=== PATIENT | female | born 1950 | race Caucasian/White ===

== ENCOUNTER 2016-08-10 15:00 | Emergency (ER) | payer MEDICARE, OTHER ==
--- NOTE | 2016-08-10 15:49 | ER PHYSICIAN DOCUMENTATION ---
Physician Documentation [facility] Name:Laurence Mckeon Age:66 yrs Sex:Female :1950 Arrival Date:08/10/2016 Time:15:00 Bed1 Private MD:Luis Hoyt EDbenjamínCipriano Disposition: 08/10/16 15:35 Discharged to Home/Self Care. Impression: Dizziness - Vertigo, Dehydration. - Condition is Good. - Discharge Instructions: DEHYDRATION (4y-Adult), DIZZINESS, Unk Cause, VERTIGO, Unspecified. - Prescriptions for Antivert 25 mg Oral Tablet - take 1 tablet by ORAL route every 8 hours As needed; 20 tablet. - Medical Reconciliation form form. - Follow up: Luis Hoyt MD; When: 4- 6 days; Reason: Recheck today's complaints, Continuance of care. - Problem is new. - Symptoms have improved. - Notes: Drink plenty of fluids....rest...limit head movement... Take Antivert as prescribed... HPI: 08/10 15:05 This 66 yrs old Female presents to ER via Private Vehicle with complaints of cd Dizziness. 15:05 The patient presents with sense of spinning, vertigo. Onset: The symptom(s)/episode cd began/occurred acutely, 3 day(s) ago, after turning her head to the right. She sensed vertigo and spinning. She denies severe headache, fever, chills, neck stiffness, ataxia or dysmetria. She has not had facial drooping, weakness in the arms or legs or speech changes. She has not had any visual changes.. Context: occurred at home, occurred while the patient was sitting, today recurred. No nausea or vomiting. Associated signs and symptoms: Pertinent negatives: abdominal pain, blurred vision, chest pain, confusion, diaphoresis, focal weakness, headache, near-syncope, palpitations, seizure, shortness of breath, vomiting. Patient's baseline: Motor: no deficits, Ambulation: walks without assistance, Speech: normal. Historical: - Allergies: Novocain; Prozac; - Home Meds: 1. Potassium Chloride Oral 2. Magnesium Oxide Oral 3. multiple supplements and herbals - PMHx: edema; hypoxemia; LVH; diastolic heart failure; DEPRESSION; HIGH CHOLESTEROL; THYROID PROBLEM; - PSHx: Appendectomy; eye surgeries; - Tetanus: unknown. - Ebola Screening: : Patient negative for fever greater than or equal to 101.5 degrees Fahrenheit, and additional compatible Ebola Virus Disease symptoms. Patient denies exposure to infectious person. Patient denies travel to an Ebola-affected area in the 21 days before illness onset. No symptoms or risks identified at this time. . - Immunization history: Flu Vaccine >1 year. - Social history: Smoking status: Patient states was never smoker of tobacco. ROS: 15:20 Eyes: Negative for injury, pain, redness, discharge, blurry vision and loss of vision. cd Neck: Negative for injury, pain, stiffness and swelling. Cardiovascular: Negative for chest pain, palpitations, edema and pleuritic pain. Respiratory: Negative for shortness of breath, dyspnea on exertion, cough, sputum production, wheezing, hemoptysis and pleuritic chest pain. Abdomen/GI: Negative for abdominal pain, nausea, vomiting, diarrhea, constipation, distension, melena, hematochezia and hematemesis. Back: Negative for injury, pain or muscle spasms. MS/Extremity: Negative for injury, deformity, edema, calf tenderness, pain or coldness. 15:20 Skin: Negative for injury, rash, itching and discoloration. cd 15:20 Constitutional: Positive for poor PO intake, Negative for chills, fever. 15:20 ENT: Negative for rhinorrhea, sinus congestion, sinus pain, sore throat, hoarseness. 15:20 Neuro: Positive for dizziness, Negative for altered mental status, gait disturbance, headache, loss of consciousness, numbness, seizure activity, speech changes, syncope, near syncope, tingling, visual changes, weakness. 15:20 All other systems are negative. Exam: 15:20 Head/Face: Normocephalic, atraumatic. cd ENT: Nares patent. No nasal discharge, no septal abnormalities noted. Tympanic membranes are normal and external auditory canals are clear. Oropharynx with no redness, swelling, or masses, exudates, or evidence of obstruction, uvula midline. Mucous membranes moist. Neck: Trachea midline, no thyromegaly or masses palpated, and no cervical lymphadenopathy. Supple, full range of motion without nuchal rigidity, or vertebral point tenderness. No Meningismus. Chest/axilla: Normal chest wall appearance and motion. Nontender with no deformity. No lesions are appreciated. Cardiovascular: Regular rate and rhythm with a normal S1 and S2. No gallops, murmurs, or rubs. Normal PMI, no JVD. No pulse deficits. Respiratory: Lungs have equal breath sounds bilaterally, clear to auscultation and percussion. No rales, rhonchi or wheezes noted. No increased work of breathing, no retractions or nasal flaring. Abdomen/GI: Soft, non-tender, with normal bowel sounds. No distension or tympany. No guarding or rebound. No evidence of tenderness throughout. Back: No spinal tenderness. No costovertebral tenderness. Full range of motion. 15:20 Skin: Warm, dry with normal turgor. Normal color with no rashes, no lesions, and no evidence of cellulitis. 15:20 Constitutional: The patient appears alert, awake, non-diaphoretic, non-toxic, well developed, well nourished, anxious. 15:20 Eyes: Pupils: equal, round, and reactive to light and accomodation, Extraocular movements: intact throughout, Nystagmus: nystagmus with fast component noted, bilaterally. 15:20 Neuro: Orientation: is normal, Cerebellar function: is grossly normal, normal finger to nose testing, heel to hawkins testing is normal, able to perform alternating rapid hand movements, Motor: is normal, Sensation: is normal, Gait: is steady, at a normal pace, without difficulty. Vital Signs: 15:20 BP 137 / 84; Pulse 66; Resp 14; Temp 98(TE); Pulse Ox 91% on R/A; Pain 0/10; tg Ankita Coma Score: 15:20 Eye Response: spontaneous(4). Verbal Response: oriented(5). Motor Response: obeys cd commands(6). Total: 15. MDM: 15:10 Patient medically screened. cd 15:20 Differential diagnosis: cardiac arrhythmia, CVA, hypovolemia, idiopathic dizziness, cd TIA, vertigo. Data reviewed: vital signs, nurses notes, old medical records, and as a result, I will discharge patient. Data interpreted: Pulse oximetry: on room air is 91 %. Interpretation: normal. 15:30 Counseling: I had a detailed discussion with the patient and/or guardian regarding: the cd historical points, exam findings, and any diagnostic results supporting the discharge/admit diagnosis, the need for outpatient follow up, for a recheck, with the patient's primary care provider, to return to the emergency department if symptoms worsen or persist or if there are any questions or concerns that arise at home. Dispensed Medications: No medications were administered Signatures: Willard Pocne RN RN tg Cipriano Vazquez MD MD cd
--- NOTE | 2016-08-10 15:49 | ER NURSING DOCUMENTATION ---
Nurse's Notes [facility] Name:Laurence Mckeon Age:66 yrs Sex:Female :1950 Arrival Date:08/10/2016 Time:15:00 Bed1 Private MD:Luis Hoyt Diagnosis:Dizziness - Vertigo;Dehydration Presentation: 08/10 15:03 Acuity: CORNELL 3 tg 15:12 Presenting complaint: Patient states: Dizzy spell while sitting at her computer 30 tg minutes ago, has not resolved. No chest pain or shortness of breath. Similar dizzy spells the past few days when turning her head or moving in a car. Some nausea. No hx of vertigo. Transition of care: patient was not received from another setting of care. 15:12 Method Of Arrival: Private Vehicle tg Triage Assessment: 15:19 General: Appears in no apparent distress, Behavior is cooperative. Pain: Denies pain. tg Neuro: Level of Consciousness is awake, alert, Reports dizziness. Respiratory: Airway is patent Respiratory effort is even, unlabored. Derm: Skin is pink, warm & dry. 15:20 GI: Reports nausea. tg Historical: - Allergies: Novocain; Prozac; - Home Meds: 1. Potassium Chloride Oral 2. Magnesium Oxide Oral 3. multiple supplements and herbals - PMHx: edema; hypoxemia; LVH; diastolic heart failure; DEPRESSION; HIGH CHOLESTEROL; THYROID PROBLEM; - PSHx: Appendectomy; eye surgeries; - Tetanus: unknown. - Ebola Screening: : Patient negative for fever greater than or equal to 101.5 degrees Fahrenheit, and additional compatible Ebola Virus Disease symptoms. Patient denies exposure to infectious person. Patient denies travel to an Ebola-affected area in the 21 days before illness onset. No symptoms or risks identified at this time. . - Immunization history: Flu Vaccine >1 year. - Social history: Smoking status: Patient states was never smoker of tobacco. Screenin:22 Infectious Disease Risk Unable to Obtain. Abuse screen: Denies threats or abuse. Denies tg injuries from another. Nutritional screening: No deficits noted. Vital Signs: 15:20 BP 137 / 84; Pulse 66; Resp 14; Temp 98(TE); Pulse Ox 91% on R/A; Pain 0/10; tg Ankita Coma Score: 15:20 Eye Response: spontaneous(4). Verbal Response: oriented(5). Motor Response: obeys cd commands(6). Total: 15. ED Course: 15:02 Patient arrived in ED. hw2 15:02 Luis Hoyt MD is Private Physician. hw2 15:03 Willard Ponce, RN is Primary Nurse. tg 15:04 Triage completed. tg 15:10 Cipriano Vazquez MD is Attending Physician. cd 15:22 Arm band placed on. tg 15:22 Valuables Remains with patient. tg 15:34 Luis Hoyt MD is Referral Physician. cd Administered Medications: No medications were administered Outcome: 15:35 Discharge ordered by . cd 15:48 Discharged to home ambulatory. tg 15:48 Condition: stable 15:48 Discharge Assessment: Patient awake and alert. 15:48 Discharge Assessment: Feeling better, denies diziness or nausea 15:48 Instructed on discharge instructions, follow up and referral plans. medication usage, Prescriptions given X 2, zofran, antivert 15:48 Patient left the ED. tg Signatures: Willard Ponce RN RN tg Cipriano Vazquez MD MD cd West, Heidi hw2
== END 2016-08-10 15:49 | disposition home or self-care (01) ==
LOC: ER 15:00
DX: E86.0 Dehydration (principal); R42 Dizziness and giddiness; I50.30 Unspecified diastolic (congestive) heart failure; Z79.899 Other long term (current) drug therapy
CPT/HCPCS: 99282; 99283

== ENCOUNTER 2016-09-04 20:30 | Inpatient (IN) | payer MEDICARE, OTHER ==
[2016-09-04] MEDS ORDERED: DILTIAZEM HCL 125 MG/25 ML VIAL IV ONE ×2 (20:58→23:00)
[2016-09-04 21:08] LABS: BASOPHIL# 0.1 X 10^3uL (0.0-0.1); EOSINOPHILS 2.8 % (0.0-6.0); EOSINOPHILS# 0.2 X 10^3uL (0.0-0.4); HEMATOCRIT 50.9 % (36.0-48.0); HEMOGLOBIN 17.1 g/dL (12.0-16.0); LYMPHOCYTES 33.8 % (20.0-40.0); LYMPHOCYTES# 2.3 X 10^3uL (0.8-3.8); MEAN CELL VOLUME 84.9 fL (80.0-100.0); MEAN CORPUS. HGB CONCENTRATION 33.7 g/dL (32.0-36.0); MEAN CORPUSCULAR HEMOGLOBIN 28.6 pg (29.0-35.0); MEAN PLATELET VOLUME 8.3 fL (7.4-10.4); MONOCYTES 10.1 % (2.0-10.0); MONOCYTES# 0.7 X 10^3uL (0.2-1.0); NEUTROPHILS 52.3 % (54.0-75.0); NEUTROPHILS# 3.6 X 10^3uL (2.6-6.7); PLATELET COUNT 185 X 10^3uL (130-440); RED BLOOD COUNT 5.99 X 10^6uL (4.20-6.10); RED CELL DISTRIBUTION WIDTH 12.7 % (11.5-14.5); WHITE BLOOD COUNT 6.9 X 10^3uL (3.9-10.7)
[2016-09-04 21:11] LABS: BLOOD UREA NITROGEN 18 mg/dL (7-17); CALCIUM 9.4 mg/dL (8.4-10.2); CHLORIDE 109 mmol/L (98-107); CREATININE 0.9 mg/dL (0.5-1.0); EST GLOMERULAR FILTRATION RATE > 60 mL/min; GLUCOSE 110 mg/dL (70-100); MAGNESIUM 2.1 mg/dL (1.6-2.3); POTASSIUM 3.6 mmol/L (3.5-5.1); SODIUM 142 mmol/L (137-145)
[2016-09-04 21:23] LABS: TROPONIN I 0.023 ng/mL (0.00-0.034)
[2016-09-04 21:49] LABS: THYROID STIMULATING HORMONE < 0.02 uIU/mL (0.47-4.68)
[2016-09-04 21:55] LABS: INR 1.1
[2016-09-04] MEDS ORDERED: ZOLPIDEM TARTRATE 5 MG TABLET PO PRN (22:57)
[2016-09-04] MEDS ORDERED: HOME MEDICATION LIST NEEDED 1 EA EACH MISC ONE (22:57)
[2016-09-04] MEDS ORDERED: ACETAMINOPHEN 325 MG TABLET PO PRN (22:57)
[2016-09-04] MEDS ORDERED: POTASSIUM CHLORIDE/NS 1,000 ML IV SCH (23:00)
[2016-09-04] MEDS ORDERED: NORMAL SALINE 100 ML IV ONE (23:01)
--- NOTE | 2016-09-04 23:49 | ER PHYSICIAN DOCUMENTATION ---
Physician Documentation [facility] Name:Laurence Mckeon Age:66 yrs Sex:Female :1950 Arrival Date:09/04/2016 Time:20:30 BedTrauma-C Private MD:Luis Hoyt ED, Scott Disposition: 09/04/16 22:56 Admit ordered for Luis Hoyt. Preliminary diagnosis is Atrial Fibrillation with Rapid Ventricular Response. - Bed requested for Medical/Surgical. - Condition is Fair. - Problem is new. - Symptoms have improved. 23 HR OBS Yes HPI: 09/04 21:58 This 66 yrs old Female presents to ER via Wheelchair with complaints of sc Irregular Pulse. 21:58 The patient presents with a history of irregular heart beat, heart racing. Context: The sc symptoms occur at rest. Onset: The symptom(s)/episode began/occurred 2 hour(s) ago. Duration: The patient or guardian reports a single episode, that is still ongoing. Associated signs and symptoms: The patient has no apparent associated signs or symptoms. Historical: - Allergies: Novocain; Prozac; - Home Meds: 1. aspirin 81 mg oral tab 1 tab every other day 2. "natural thyroid medicine." - PMHx: THYROID PROBLEM; HIGH CHOLESTEROL; diastolic heart failure; LVH; edema; - PSHx: APPENDECTOMY; eye surgeries; - Tetanus: < 10 years. - Ebola Screening: : Patient negative for fever greater than or equal to 101.5 degrees Fahrenheit, and additional compatible Ebola Virus Disease symptoms. Patient denies exposure to infectious person. Patient denies travel to an Ebola-affected area in the 21 days before illness onset. No symptoms or risks identified at this time. . - Immunization history: Pneumococcal vaccine is up to date, Flu Vaccine None. - Social history: Smoking status: Patient states was never smoker of tobacco. Patient uses alcohol occasionally. Patient/guardian denies using street drugs. ROS: 21:59 Constitutional: Negative for fever, chills, and weight loss. sc Eyes: Negative for injury, pain, redness, and discharge. ENT: Negative for injury, pain, and discharge. Neck: Negative for injury, pain, and swelling. Respiratory: Negative for shortness of breath, cough, wheezing, and pleuritic chest pain. Back: Negative for injury and pain. Skin: Negative for injury, rash, and discoloration. 21:59 Neuro: Negative for headache, weakness, numbness, tingling, and seizure. sc 21:59 Cardiovascular: Positive for palpitations. Exam: Constitutional: This is a well developed, well nourished patient who is awake, alert, and in no acute distress. Head/Face: Normocephalic, atraumatic. Eyes: Pupils equal round and reactive to light, extra-ocular motions intact. Lids and lashes normal. Conjunctiva and sclera are non-icteric and not injected. Cornea within normal limits. Periorbital areas with no swelling, redness, or edema. ENT: Nares patent. No nasal discharge, no septal abnormalities noted. Tympanic membranes are normal and external auditory canals are clear. Oropharynx with no redness, swelling, or masses, exudates, or evidence of obstruction, uvula midline. Mucous membranes moist. Neck: Trachea midline, no thyromegaly or masses palpated, and no cervical lymphadenopathy. Supple, full range of motion without nuchal rigidity, or vertebral point tenderness. No meningismus. Chest/axilla: Normal chest wall appearance and motion. Nontender with no deformity. No lesions are appreciated. Respiratory: Lungs have equal breath sounds bilaterally, clear to auscultation and percussion. No rales, rhonchi or wheezes noted. No increased work of breathing, no retractions or nasal flaring. Abdomen/GI: Soft, non-tender, with normal bowel sounds. No distension or tympany. No guarding or rebound. No evidence of tenderness throughout. Back: No spinal tenderness. No costovertebral tenderness. Full range of motion. 21:59 Skin: Warm, dry with normal turgor. Normal color with no rashes, no lesions, and no sc evidence of cellulitis. 21:59 Cardiovascular: Rate: tachycardic, Rhythm: irregularly irregular, Pulses: Pulses are 2+ in right radial artery, right posterior tibial artery, right dorsalis pedis artery, left radial artery and left dorsalis pedis artery. 22:06 Respiratory: Respirations: normal, Breath sounds: are normal, clear throughout. pr Vital Signs: 20:30 BP 154 / 87 (auto/); mk2 20:37 Pulse 160 MON; Resp 23; Pulse Ox 91% ; mk2 20:45 BP 154 / 87; Pulse 160; Resp 16; Temp 98.2; Pulse Ox 96% on R/A; Weight 83.46 kg; 2 Height 5 ft. 4 in. (162.56 cm); Pain 0/10; 21:27 Pulse 105 MON; Resp 14; Pulse Ox 93% ; mk2 21:45 BP 108 / 62 (auto/); mk2 21:47 Pulse 149 MON; Resp 24; Pulse Ox 94% ; mk2 22:00 BP 101 / 71 (auto/); mk2 22:02 Pulse 145 MON; Resp 21; Pulse Ox 96% ; mk2 22:27 Pulse 159 MON; Pulse Ox 93% ; mk2 22:31 BP 93 / 67 (auto/); mk2 23:12 Pulse 115 MON; Resp 21; Pulse Ox 97% ; mk2 23:12 Resp 13; Pain 0/10; mk2 23:27 Pulse 140 MON; Resp 23; Pulse Ox 96% ; mk2 23:30 BP 95 / 75 (auto/); mk2 20:45 Body Mass Index 31.58 (83.46 kg, 162.56 cm) 2 MDM: 20:42 Patient medically screened. pr 22:00 Differential diagnosis: arrythmia. Data reviewed: vital signs, nurses notes, old pr medical records, lab test result(s), EKG, and as a result, I will discharge patient. Counseling: I had a detailed discussion with the patient and/or guardian regarding: the historical points, exam findings, and any diagnostic results supporting the discharge/admit diagnosis, lab results, radiology results, the need for outpatient follow up, to return to the emergency department if symptoms worsen or persist or if there are any questions or concerns that arise at home. ECG:. 22:04 Physician consultation: Luis Hoyt MD was called at 22:05, was contacted at 22:05, pr regarding patient's condition. 09/05 01:02 EKG attached [facility] 09/04 21:19 Order name: BASIC METABOLIC PANEL [facility] 09/04 21:46 Interpretation: Normal Except. pr 09/04 21:19 Order name: MAGNESIUM [facility] 09/04 21:46 Interpretation: Normal. pr 09/04 21:20 Order name: CBC AUTO DIF, MDIF/RMOR IF IND [facility] 09/04 21:46 Interpretation: Normal Except: HEMATOCRIT 50.9. pr 09/04 21:29 Order name: TROPONIN I [facility] 09/04 21:46 Interpretation: Normal. pr 09/04 21:51 Order name: THYROID STIMULATING HORMONE [facility] 09/04 21:56 Order name: PROTIME/INR [facility] 09/04 22:27 Order name: FREE T4 [facility] 09/04 20:45 Order name: 12-lead EKG; Complete Time: 20:49 2 09/04 20:45 Order name: Iv Saline Lock; Complete Time: 20:55 2 09/04 20:45 Order name: Place Patient On Monitor; Complete Time: 20:55 mk2 09/04 20:45 Order name: Pulse Ox Continuous; Complete Time: 20:55 mk2 EC/16 22:00 Rate is 145 beats/min. Rhythm is irregularly irregular, A fib. QRS Wyckoff is Normal. QRS sc interval is normal. QT interval is normal. No Q waves. T waves are Normal. No ST changes noted. Clinical impression: Atrial Fibrillation. Interpreted by me. Reviewed by me. Dispensed Medications: Completed: NS 0.9% 1000 ml IV at bolus once 20:49 Drug: NS 0.9% 1000 ml; Route: IV; Rate: bolus; Site: left antecubital; 23:47 Follow up: IV Status: Infusion discontinued; IV Intake: 500ml mk2 20:55 Drug: Diltiazem 20 mg; Route: IVP; Infused Over: 5 mins; Site: left antecubital; mk2 21:01 Follow up: Response: Cardiac rhythm changed mk2 22:03 Drug: Metoprolol 25 mg; Route: PO; mk2 22:08 Follow up: Response: No adverse reaction mk2 23:05 Drug: Diltiazem 10 mg/hr; Route: IV; Rate: calculated rate; Site: left antecubital; mk2 23:46 Follow up: Rate change 5 ml/hr; IV Status: Infusion continued upon admission 2 Signatures: Marily Carpenter RN RN rs Chew, Scott, MD MD pr Zita Bui RN RN [facility] niraj ramirez
--- NOTE | 2016-09-04 23:49 | ER NURSING DOCUMENTATION ---
Nurse's Notes [facility] Name:Laurence Mckeon Age:66 yrs Sex:Female :1950 Arrival Date:09/04/2016 Time:20:30 BedTrauma-C Private MD:Luis Hoyt Diagnosis:Atrial Fibrillation with Rapid Ventricular Response Presentation: 09/04 20:45 Acuity: CORNELL 2 rs 21:14 Transition of care: Home. mk2 21:14 Method Of Arrival: Wheelchair mk2 21:15 Presenting complaint: Patient states: I started with a fast heart rate about 1.5 hours mk2 ago." Pt denies sob and cp but admits to diaphoresis. Non radiating chest pressure. Pt states she was also having a hot flash. PT arrives in no acute distress, in what appears to be svt and is conversive in room. Pt placed on monitor and oxygen. Pt performs vagal maneuvers and is able to drop her rate from 160 to 110 with some rebound up into the 120/130. Pt is alert and oriented. Stable svt. Care prior to arrival: None. Triage Assessment: 20:55 General: Appears in no apparent distress, Behavior is anxious, cooperative. Pain: mk2 Denies pain. Neuro: No deficits noted. Level of Consciousness is awake, alert, Oriented to person, place, time, event. Cardiovascular: Pt heart rate was very quick upon arrival at 160. Cardiovascular: Murmur present Rhythm is Pt rate drops with vagal movements to 110 but also appears irregular. Respiratory: Breath sounds are clear bilaterally. Denies shortness of breath. Derm: Skin is dry, Skin is normal. Historical: - Allergies: Novocain; Prozac; - Home Meds: 1. aspirin 81 mg oral tab 1 tab every other day 2. "natural thyroid medicine." - PMHx: THYROID PROBLEM; HIGH CHOLESTEROL; diastolic heart failure; LVH; edema; - PSHx: APPENDECTOMY; eye surgeries; - Tetanus: < 10 years. - Ebola Screening: : Patient negative for fever greater than or equal to 101.5 degrees Fahrenheit, and additional compatible Ebola Virus Disease symptoms. Patient denies exposure to infectious person. Patient denies travel to an Ebola-affected area in the 21 days before illness onset. No symptoms or risks identified at this time. . - Immunization history: Pneumococcal vaccine is up to date, Flu Vaccine None. - Social history: Smoking status: Patient states was never smoker of tobacco. Patient uses alcohol occasionally. Patient/guardian denies using street drugs. Screenin:59 Infectious Disease Risk None. Abuse screen: Denies threats or abuse. Nutritional mk2 screening: No deficits noted. Assessment: 20:59 See Triage Assessment done by same RN. mk2 Vital Signs: 20:30 BP 154 / 87 (auto/); mk2 20:37 Pulse 160 MON; Resp 23; Pulse Ox 91% ; mk2 20:45 BP 154 / 87; Pulse 160; Resp 16; Temp 98.2; Pulse Ox 96% on R/A; Weight 83.46 kg; mk2 Height 5 ft. 4 in. (162.56 cm); Pain 0/10; 21:27 Pulse 105 MON; Resp 14; Pulse Ox 93% ; mk2 21:45 BP 108 / 62 (auto/); mk2 21:47 Pulse 149 MON; Resp 24; Pulse Ox 94% ; mk2 22:00 BP 101 / 71 (auto/); mk2 22:02 Pulse 145 MON; Resp 21; Pulse Ox 96% ; mk2 22:27 Pulse 159 MON; Pulse Ox 93% ; mk2 22:31 BP 93 / 67 (auto/); mk2 23:12 Pulse 115 MON; Resp 21; Pulse Ox 97% ; mk2 23:12 Resp 13; Pain 0/10; mk2 23:27 Pulse 140 MON; Resp 23; Pulse Ox 96% ; mk2 23:30 BP 95 / 75 (auto/); mk2 20:45 Body Mass Index 31.58 (83.46 kg, 162.56 cm) mk2 ED Course: 20:31 Patient arrived in ED. em2 20:31 Luis Hoyt MD is Private Physician. em2 20:33 Marily Carpenter, ROBER is Primary Nurse. rs 20:33 Triage completed. rs 20:35 EKG done. (by ED staff). mk2 20:42 Davy Ch MD is Attending Physician. sc 20:44 Primary Nurse role handed off by Marily Carpenter, ROBER mk2 20:44 Zita Bui, RN is Primary Nurse. mk2 20:45 Oxygen Oxygen administration via nasal cannula @ 2L/min. mv 20:56 Port Xray Completed. ms 20:58 Inserted peripheral IV: 20 gauge in left antecubital area and blood collected. mk2 20:58 Arm band placed on Bed in low position Call Light in Reach Gowned HOB Elevated Side mk2 rails up x1. 20:58 Valuables Remains with patient. visual aid expert on. Pulse ox on. NIBP on. Verbal mk2 reassurance given. 21:29 Attending Physician role handed off by Davy Ch MD cd 21:29 Cipriano Vazquez MD is Attending Physician. cd 21:46 Davy Ch MD is Attending Physician. sc 22:05 Luis Hoyt MD is Referral Physician. sc 22:54 Luis Hoyt MD is Admitting Physician. sc 23:05 Resting quietly. Wes Rodriguez [phone]. mk2 23:09 Resting quietly. Pt is supine in bed with non labored breathing and no complaints at mk2 this time. Pt remains in Afib with a rate of 105-160. Pt lungs remain cta. 09/05 01:02 EKG attached mk2 Administered Medications: Completed: NS 0.9% 1000 ml IV at bolus once 09/04 20:49 Drug: NS 0.9% 1000 ml; Route: IV; Rate: bolus; Site: left antecubital; mv 23:47 Follow up: IV Status: Infusion discontinued; IV Intake: 500ml mk2 20:55 Drug: Diltiazem 20 mg; Route: IVP; Infused Over: 5 mins; Site: left antecubital; mk2 21:01 Follow up: Response: Cardiac rhythm changed mk2 22:03 Drug: Metoprolol 25 mg; Route: PO; mk2 22:08 Follow up: Response: No adverse reaction mk2 23:05 Drug: Diltiazem 10 mg/hr; Route: IV; Rate: calculated rate; Site: left antecubital; mk2 23:46 Follow up: Rate change 5 ml/hr; IV Status: Infusion continued upon admission mk2 Intake: 22:07 PO: 4ml (Water); IV: 500ml; Total: 504ml. mk2 23:47 IV: 500ml; Total: 1004ml. mk2 Outcome: 22:06 Discharge ordered by . sc 22:56 Decision to Admit by Provider. sc 23:46 Admitted to Med/surg accompanied by nurse, via stretcher, with oxygen, on monitor. mk2 23:46 Condition: stable 23:46 Report given to Scott Mendieta 23:46 Instructed on need to admit 23:47 Patient left the ED. mk2 Signatures: Marily Carpenter RN RN rs Chew, Scott, MD MD sc Daley, Chris, MD MD cd Strickland, Mary ms Ramya, ROBER Ahumada RN mk2 Alina-reg, Jessica-bev 2 niraj ramirez
[2016-09-05] MEDS ORDERED: NORMAL SALINE ADDVANTAGE IV SCH (00:40)
[2016-09-05] MEDS ORDERED: DILTIAZEM HCL IV SCH (00:40)
[2016-09-05] MEDS: DILTIAZEM HCL 25 MG/5 ML VIAL IV SCH ×3 (00:42→01:45)
[2016-09-05] MEDS: ENOXAPARIN SODIUM 100 MG/ML SYR SUBCUT SCH ×2 (01:25→10:41)
[2016-09-05 02:04] VITALS: RESP 20
[2016-09-05 06:23] VITALS: BP 98/63; PULSE 60; TEMP 98.1; O2SAT 95
[2016-09-05 06:48] LABS: BASOPHIL# 0.1 X 10^3uL (0.0-0.1); BASOPHILS 0.8 % (0.0-2.0); EOSINOPHILS 3.1 % (0.0-6.0); EOSINOPHILS# 0.2 X 10^3uL (0.0-0.4); HEMATOCRIT 48.2 % (36.0-48.0); HEMOGLOBIN 16.6 g/dL (12.0-16.0); LYMPHOCYTES 44.6 % (20.0-40.0); LYMPHOCYTES# 2.9 X 10^3uL (0.8-3.8); MEAN CELL VOLUME 85.1 fL (80.0-100.0); MEAN CORPUS. HGB CONCENTRATION 34.5 g/dL (32.0-36.0); MEAN CORPUSCULAR HEMOGLOBIN 29.3 pg (29.0-35.0); MEAN PLATELET VOLUME 8.5 fL (7.4-10.4); MONOCYTES 10.1 % (2.0-10.0); MONOCYTES# 0.6 X 10^3uL (0.2-1.0); NEUTROPHILS 41.4 % (54.0-75.0); NEUTROPHILS# 2.6 X 10^3uL (2.6-6.7); PLATELET COUNT 169 X 10^3uL (130-440); RED BLOOD COUNT 5.67 X 10^6uL (4.20-6.10); RED CELL DISTRIBUTION WIDTH 13.2 % (11.5-14.5); WHITE BLOOD COUNT 6.4 X 10^3uL (3.9-10.7)
[2016-09-05 07:13] LABS: BLOOD UREA NITROGEN 14 mg/dL (7-17); CHLORIDE 113 mmol/L (98-107); CREATINE KINASE 108 U/L (30-135); CREATININE 0.7 mg/dL (0.5-1.0); EST GLOMERULAR FILTRATION RATE > 60 mL/min; GLUCOSE 75 mg/dL (70-100); POTASSIUM 3.9 mmol/L (3.5-5.1); SODIUM 143 mmol/L (137-145)
[2016-09-05 07:27] LABS: TROPONIN I 0.256 ng/mL (0.00-0.034)
--- NOTE | 2016-09-05 07:31 | RADIOLOGY REPORT ---
HISTORY: Irregular pulse. TECHNIQUE: Portable AP upright view of the chest. COMPARISON: 08/31/2014. FINDINGS: The lungs are clear. No pleural effusion or pneumothorax is identified. The heart and mediastinal silhouette are stable. IMPRESSION: Negative portable chest X-ray. Final Electronic Signature: This report was electronically signed by Arun Escudero MD on 09/05/2016 7:29 AM. xin /
--- NOTE | 2016-09-05 13:14 | DC SUMMARY: IM Note ---
Discharge Summary: IM/Peds Provider: Date of Admission: 09/04/16 Admitting Provider: NEETA CANTU MD Attending Provider: NEETA CANTU MD Discharging Provider: NEETA CANTU MD Primary Care Provider: Discharge Date: 09/05/16 - Diagnosis (1) Atrial fibrillation with rapid ventricular response Status: Acute (2) Elevated troponin Status: Acute (3) LAE (left atrial enlargement) Status: Chronic (4) LVH (left ventricular hypertrophy) Status: Chronic (5) Hypercholesterolemia Status: Chronic (6) Hypothyroidism, acquired, autoimmune Status: Chronic Hospital Course: As previously documented, patient was admitted with new diagnosis of atrial fibrillation with rapid ventricular response. No clear symptoms of hypoperfusion. However, with mildly elevated troponin levels felt to be rate related ischemia. Treated with Lovenox, initially IV diltiazem, and then transition to oral metoprolol. Spontaneously converted to normal sinus rhythm. Received gentle IV fluid resuscitation and potassium replacement as she was borderline low. [place] Thyroid was held. She was seen by cardiology, and echocardiogram was repeated. This had not changed significantly, and it is felt that her asymmetric LVH and significant left atrial enlargement and predispose her to atrial fibrillation. Electrolyte abnormalities not significant enough to have been likely contributors. Her TSH was suppressed but generally is at baseline, and her free T4 remains normal. We discussed options. She wants to continue with [place] Thyroid for now but is willing to decrease from 120 mg down to 90 mg with a plan to reassess in one month. Appropriate for discharge to home for further outpatient management. Starting on warfarin at 2 mg daily (her request to start at a lower dose and build up). Continue metoprolol at 25 mg 2 times per day and will titrate as needed for rate control. She will be started on atorvastatin at 20 mg at night. Finally, [place] Thyroid has been decreased as above. She received Coumadin teaching by nursing and reinforced by me. Precautions have been reviewed in detail, and she will return to the emergency department in the event of symptoms of hypoperfusion. She will follow-up with me in the clinic in 2 weeks. - Time Spent with Patient Total time spent providing and/or coordinating discharge services: Discharge - Patient/Caregiver Discharge Instructions Activity Level: Day to day activities as tolerated. Hold off on strenuous exercise for now. Gentle walking is okay. Diet: Cardiac as tolerated. Additional Instructions: Check INR Wednesday morning. Follow up: NEETA CANTU MD [Primary Care Provider] - 2 Weeks KAVON MEDRANO MD [MD] - 2 Weeks Overall discharge status: patient is progressing back to baseline Print Language: SRI LANKAN Home Medications: Thyroid,Pork [[place] Thyroid] 90 mg PO DAILY #30 tab Atorvastatin Calcium [Lipitor*] 20 mg PO HS #30 tablet metoprolol TARTRATE [Metoprolol Tartrate*] 25 mg PO BID #60 tablet Warfarin Sodium 2 mg PO DAILY #30 tab Disposition: HOME, SELF-CARE Discharge Summary Data - Medication History Medication History: Home Medications Acetaminophen [Tylenol*] 650 mg PO Q6H PRN #0 tablet 09/05/16 Atorvastatin Calcium [Lipitor*] 20 mg PO HS #30 tablet 09/05/16 [place] Wort 150 mg PO DAILY 09/05/16 Thyroid,Pork [[place] Thyroid] 90 mg PO DAILY #30 tab 09/05/16 Warfarin Sodium 2 mg PO DAILY #30 tab 09/05/16 aspirin EC [Aspirin EC*] 81 mg PO DAILY 09/05/16 metoprolol TARTRATE [Metoprolol Tartrate*] 25 mg PO BID #60 tablet 09/05/16 Inpatient Medications 09/05/16 09:00 aspirin EC [Ecotrin 81 mg] 81 mg PO DAILY metoprolol TARTRATE [Lopressor] 25 mg PO BID 09/05/16 16:00 Warfarin Sodium [Coumadin] 2.5 mg PO ONCE DAILY @1600 09/05/16 21:00 Atorvastatin Calcium [Lipitor] 20 mg PO HS 09/06/16 09:00 aspirin EC [Ecotrin 81 mg] 81 mg PO DAILY Procedures and tests throughout hospitalization: Pending Orders 09/05/16 08:21 Echo [Echocardiogram] [CARDIO] Routine 09/05/16 08:41 coumadin teaching [Teach: Warfarin Education] . 09/05/16 09:00 aspirin EC [Ecotrin 81 mg] 81 mg PO DAILY metoprolol TARTRATE [Lopressor] 25 mg PO BID 09/05/16 16:00 Warfarin Sodium [Coumadin] 2.5 mg PO ONCE DAILY @1600 09/05/16 21:00 Atorvastatin Calcium [Lipitor] 20 mg PO HS 09/05/16 Lunch DIET [Regular] [DIET] 09/06/16 09:00 aspirin EC [Ecotrin 81 mg] 81 mg PO DAILY Labs on day of discharge: Labs from last 24 hours 09/05/16 06:15 WBC 6.4 RBC 5.67 Hgb 16.6 H Hct 48.2 H MCV 85.1 MCH 29.3 MCHC 34.5 RDW 13.2 Plt Count 169 MPV 8.5 Neutrophils % 41.4 L Lymphocytes % 44.6 H Eosinophils % 3.1 Basophils % 0.8 Neutrophils # 2.6 Lymphocytes # 2.9 Monocytes 10.1 H Monocytes # 0.6 Eosinophils # 0.2 Basophils # 0.1 Sodium 143 Potassium 3.9 Chloride 113 H Carbon Dioxide 23 BUN 14 Creatinine 0.7 GFR Calculation > 60 Glucose 75 Calcium 9.0 Creatine Kinase 108 CK-MB (CK-2) 3.80 H Troponin I 0.256 H* IM: Discharge Physical Exam - I&O/Vital Signs I&O: Intake & Output 09/04/16 09/05/16 09/05/16 21:59 05:59 13:59 Intake Total 550 Output Total 675 Balance -125 Weight 83.007 kg 83.275 kg Intake: IV 550 Left Antecubital 550 Output: Urine 675 Other: Urine Appearance Clear Urine Color Yellow Voiding Method Toilet # Voids 1 # Bowel Movements 0 Vital Signs: Last Vital Signs Temp 36.7 C 09/05/16 06:22 Pulse 60 09/05/16 06:22 Resp 20 09/05/16 06:22 BP 98/63 09/05/16 06:22 Pulse Ox 95 09/05/16 06:22 Oxygen Flow Rate 2 Oxygen Delivery Method Room Air - Constitutional General appearance: Present: obese - Head Head exam: Present: normal inspection - ENT ENT exam: Present: mucous membranes moist - Neck Neck exam: Present: full ROM - Respiratory Respiratory exam: Present: CTAB. Absent: rales, rhonchi, wheezes - Cardiovascular Cardiovascular exam: Present: RRR, systolic murmur. Absent: S3, S4 - GI/Abdominal GI/Abdominal exam: Present: normal bowel sounds, soft. Absent: organomegaly, tenderness - Extremities Exam Extremities exam: Present: edema (trace) - Neurological Exam Neurological exam: Present: oriented X3 - Psychiatric Psychiatric exam: Present: depressed (tearful regarding new diagnosis of atrial fibrillation). Absent: anxious - Skin Skin exam: Absent: rash
[2016-09-05] MEDS ORDERED: WARFARIN SODIUM 2.5 MG TABLET PO SCH (16:00)
--- NOTE | 2016-09-05 16:02 | HISTORY & PHYSICAL ---
DATE OF ADMISSION: 09/04/16 CHIEF COMPLAINT: Palpitations. HISTORY OF PRESENT ILLNESS: The patient is a 66-year-old female with a history of paroxysmal atrial tachycardia and chronic diastolic heart failure. Was in her usual state of good health until yesterday evening where she had the sudden onset of palpitations which she described as a fluttering fast sensation in her chest without radiation. Perhaps some slight tightness in association with this. She denied any associated lightheadedness, presyncope, syncope. No shortness of breath. Perhaps mild diaphoresis but not significantly different than her baseline hot flashes. No nausea or vomiting. She did not have any clear precipitant for this. She did have one alcoholic during during the evening, but she is not a regular consumer of alcohol. No significant changes in caffeine intake. No changes in activities yesterday and she was not significantly dehydrated as far as she was aware. Based upon the palpitations, she came into the emergency department for further evaluation and was found to be in atrial fibrillation with a heart rate of approximately 150. She was admitted for further evaluation and treatment. Of note, she does have underlying hypothyroidism which has been presumably central hypothyroidism with a suppressed TSH but normal free T4 and free T3. She has preferred to take [place] thyroid rather than levothyroxine. PAST MEDICAL HISTORY 1. Achilles tendonitis, left lower extremity. 2. Atrial fibrillation with rapid ventricular response as above. 3. History of atrial paroxysmal tachycardia. 4. Chronic diastolic heart failure. 5. Colon polyp, adenomatous. 6. Depression. 7. Dry eye syndrome. 8. Bilateral lower extremity edema. 9. Elevated blood pressure without hypertension. 10. Chronic daily headache. 11. Hypercholesterolemia. 12. 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 13. Mild nocturnal hypoxemia, declining further workup or treatment. 14. Insomnia. 15. Left atrial enlargement. 16. Uterine fibroids. 17. LVH with asymmetrical left ventricular thickening. 18. Macular hole, both eyes. 19. Osteoarthritis, generalized. 20. Peripheral sensory neuropathy. 21. Postmenopausal status. 22. Tinnitus. PAST SURGICAL HISTORY 1. Appendectomy. 2. Cataract surgery. 3. Vitrectomy, bilateral for macular hole. ALLERGIES: Novocaine resulting in panic attacks. Prozac resulting in sexual side effects and emotional lability. MEDICATIONS Advil 200 mg 1-2 p.o. t.i.d. p.r.n. pain. [place] thyroid 120 mg p.o. daily. Aspirin 81 mg p.o. daily. Black cohosh 40 mg p.o. daily. Co-Q 10 100 mg p.o. daily. Indomethacin 25 mg 1-2 p.o. t.i.d. p.r.n. headache. Lutein 40 mg p.o. daily. Magnesium oxide 400 mg p.o. daily. Melatonin 3 mg p.o. at bedtime. Potassium 75 mg p.o. daily. Spirulina 500 mg p.o. daily. Candor Wart 300 mg 3 p.o. daily. Vitamin B complex 1 p.o. daily. Vitamin C 1000 mg p.o. daily. Vitamin D3 50,000 units of uncertain dosing [id number]. Voltaren gel 1% 4 times a day as needed to areas of pain. SOCIAL HISTORY: Rare alcohol. No tobacco. No illicit drug use. FAMILY HISTORY: Negative for CAD, auto immune disease, thyroid disease. Colon cancer in a maternal uncle and maternal aunt. Diabetes in a maternal grandmother and maternal aunt. Esophageal cancer in maternal uncle. Prostate cancer in her father. REVIEW OF SYSTEMS: Pertinent positives and negatives as above. Remainder are negative. PHYSICAL EXAMINATION VITAL SIGNS: Show a temperature of 36.7, with a blood pressure 98/63, pulse of 60, respirations of 20, and she is saturating 95% on room air. GENERAL: Well-developed female. No apparent distress. Breathing easily without use of accessory muscles. HEENT: Normocephalic/atraumatic. Sinuses are nontender. Pupils equal, round and reactive to light. Extraocular muscles appear intact. Full range of motion. Oropharynx is clear. NECK: Supple without lymphadenopathy or masses. No thyromegaly or nodules. C CHEST: Clear to auscultation bilaterally. CARDIAC: Regular rate and rhythm with a normal S1 and S2. I do not hear an S3 or S4. She has a 1/6 holosystolic murmur best heard at the left sternal border. Cannot feel a PMI. ABDOMEN: Positive bowel sounds. Soft, nontender, nondistended. No hepatosplenomegaly. BACK: No costovertebral angle tenderness. EXTREMITIES: No cyanosis or clubbing. Calves are nontender. No cords. Negative Homans. She has trace ankle edema bilaterally. SKIN: No rashes. LYMPHS: No cervical or supraclavicular lymphadenopathy. NEUROLOGIC: The patient is alert and oriented times 4. Facial expressions are symmetric. Light touch sensation is intact throughout. Moving all 4 extremities equally. LABORATORY STUDIES: White blood count is normal. Hematocrit was initially 50.9 and now down to 48.2 with hydration. Platelet count normal. INR 1.1. Chemistry panel showing normal sodium and potassium with a normal magnesium at 2.1. Her TSH was less than 0.02 with a free T4 of 1.13 which is in the normal range. Her troponin was initially 0.023 and the second this morning maddy to 0.256. EKG: In the emergency department, initially showing atrial fibrillation with a rapid ventricular response. This morning, normal sinus rhythm. No acute ST segment elevations. ASSESSMENT AND PLAN 1. Atrial fibrillation with rapid ventricular response. New. That being said, she has had atrial tachycardia in the past and may have been having some more subtle atrial fibrillation events previously. In the setting of left atrial enlargement and diastolic dysfunction with left ventricular hypertrophy which is asymmetric. In terms of other potential predisposing factors, her potassium level is not significantly lower nor is her magnesium. She was not significantly dehydrated. From a thyroid standpoint, somewhat difficult situation as she has been consistent with a central hypothyroidism picture. That being said, with suppressed TSH, it is reasonable to consider decreasing her [place] thyroid from 120 down to 90 mg daily for now. If she demonstrates evidence of clinical hypothyroidism, we may need to increase this dose again but in the setting of better controlled atrial fibrillation. Structural cardiac abnormalities likely contributing and repeat echocardiogram has been ordered. Cardiology consultation has been ordered. At this time, will plan to continue her on aspirin 81 mg daily. Will start on warfarin. She was given metoprolol 25 mg in the emergency department last night and will continue at 25 mg p.o. b.i.d. for now. Hold off on further diltiazem. She was previously given a diltiazem bolus in the emergency department and then placed on a drip. This was stopped when she converted spontaneously back to normal sinus rhythm. Finally, with regard to her elevated cardiac enzymes, this is likely related to ischemia as there is no evidence of an acute coronary syndrome. That being said , echocardiogram will look for evidence of focal wall motion abnormalities and this may change her care. I will appreciate further input from Cardiology. Will continue gentle IV fluid resuscitation along with some potassium. The patient was educated with regard to atrial fibrillation and anticoagulation and counseling was started. She will receive further information from nursing. 2. Elevated cardiac enzymes. As above. 3. History of elevated blood pressure without hypertension. Will be started on metoprolol as above. Will follow for evidence of over treatment. 4. Hypercholesterolemia. The patient with history of elevated cholesterol up to a level of 220. Will await further cardiology input but may need to be started on statin medication. 5. Hypothyroidism. Issues as above. Will plan to decrease her [place] thyroid. 6. Other medical issues. Stable. 7. DVT prophylaxis. The patient will be fully anticoagulated starting with Lovenox and transitioned to warfarin. 8. Vaccine status. The patient declines Tdap, flu shot. She has had Prevnar in 03/2014 but has thus far declined Pneumovax. 9. Core status. The patient is full core/full tube. Copy to = Dr. Camilo PHIPPS
--- NOTE | 2016-09-05 16:18 | CONSULTATION ---
DATE OF CONSULTATION: 09/05/16 IDENTIFYING DATA: A 66-year-old female. REASON FOR CONSULTATION: I was asked by Dr. Hoyt to evaluate the patient regarding atrial fibrillation and rapid ventricular response. HISTORY OF PRESENT ILLNESS: A very pleasant female with a prior history of hypertrophic cardiomyopathy. No significant LV outflow tract gradient. Preserved systolic function with grade 2 diastolic dysfunction. In addition, the patient has been noted to have ectopy in the past. She is also noted to have some thyroid abnormalities and some atrial arrhythmias in the past although no documented atrial fibrillation. Please refer to admit H&P. The patient developed atrial fibrillation within 48 hours. She was seen in the emergency department with atrial fibrillation and a rapid ventricular response. During that time she was placed on IV Cardizem and converted through the night. She denied any chest pain. She had significant palpitations and a little bit of shortness of breath. PAST MEDICAL HISTORY 1. History of hypothyroidism. 2. History of hypertrophic cardiomyopathy with preserved systolic function and grade 2 diastolic dysfunction. 3. History of hypertension. ALLERGIES TO MEDICATIONS: Please refer to the medication reconciliation list. SOCIAL HISTORY: Denies tobacco. FAMILY HISTORY: Negative for premature cardiovascular disease. REVIEW OF SYSTEMS: Remaining comprehensive review of systems is negative. PHYSICAL EXAMINATION GENERAL: Well-nourished, well-developed, no acute distress. VITAL SIGNS: Blood pressure 98/63 with a pulse of 60 and regular, respirations 20, sating 95% on room air. HEENT: Normocephalic/atraumatic. Ears, eyes, nose and throat are unremarkable. No masses or lesions. NECK: No obvious JVD. Carotid upstrokes are brisk without bruits. Neck is supple with no masses or lesions. CARDIOVASCULAR: PMI is nondisplaced. Heart is regular rate and rhythm with a soft murmur. No gallop or rub. RESPIRATORY: Clear to auscultate bilaterally without wheezes, crackles or rhonchi. ABDOMEN: Bowel sounds present, nontender, nondistended. No hepatosplenomegaly. EXTREMITIES: No clubbing, cyanosis and/or edema, perfuse. NEUROLOGIC: No gross motor or sensory deficits. PSYCHIATRIC: Alert and oriented times 3. LABORATORY DATA: Telemetry demonstrated atrial fibrillation with a rapid ventricular response. Hemoglobin 16.6, platelet count 169. INR 1.1. Sodium 143, potassium 3.9, BUN of 14, creatinine of 0.7. Second troponin bumped to 0.256. TSH is undetectable. Free T4 is 1.13. EKG: EKG obtained after cardioversion. She was in a sinus rhythm with minor diffuse T-wave changes. IMAGING: Chest x-ray was negative. ASSESSMENT 1. Hypertrophic cardiomyopathy with preserved systolic function and grade 2 diastolic dysfunction. 2. Hypertension. 3. Paroxysmal atrial fibrillation with a rapid ventricular response. Will pursue rate and rhythm control with low dose beta chester. Recommend anticoagulation with Coumadin. 4. Non ST elevation IN. Demand in nature secondary to above. This does not fit a ruptured plaque with acute coronary syndrome. I would recommend aspirin along with a beta chester and low dose statin. PLAN: The patient is presently asymptomatic and hemodynamically stable. She is suitable for discharge with 81 mg of aspirin, Lopressor 25 b.i.d., Coumadin and Lipitor. I would also recommend adjustments in thyroid medications although she is noted to have a normal free T4. We will follow up early next week. At that time we will most likely obtain a Lexiscan myocardial perfusion scan to rule out obstructive coronary artery disease although less likely given her diagnosis. In the meantime we will obtain an echocardiogram. Again, if there is significant wall motion abnormalities on the echocardiogram we will traveler changer and be much more aggressive and proceed with assessment of obstructive coronary disease sooner as opposed to later. MOISE
[2016-09-05] MEDS ORDERED: ATORVASTATIN CALCIUM 10 MG TABLET PO SCH (21:00)
== END 2016-09-05 13:17 | disposition home or self-care (01) | DRG 309 ==
LOC: ER 20:30 → IN 23:44
PROVIDERS: ADMIT Internal Medicine; ATTEND Internal Medicine
DX: I47.1 Supraventricular tachycardia (principal); R74.8 Abnormal levels of other serum enzymes; I50.32 Chronic diastolic (congestive) heart failure; I51.7 Cardiomegaly; E78.00 Pure hypercholesterolemia, unspecified; I10 Essential (primary) hypertension; F32.9 Major depressive disorder, single episode, unspecified; G47.00 Insomnia, unspecified; E03.9 Hypothyroidism, unspecified; G47.34 Idiopathic sleep related nonobstructive alveolar hypoventilation; R51 Headache; G90.09 Other idiopathic peripheral autonomic neuropathy; Z79.899 Other long term (current) drug therapy; H93.13 Tinnitus, bilateral
CPT/HCPCS: 36415; 71010; 80048; 82550; 82553; 83735; 84439; 84443; 84484; 85025; 85610; 93005; 93010; 93041; 93306; 96361; 96365; 96375; 99285; J1650; J3480